=== PATIENT | female | born 1965 | race Caucasian/White ===

== ENCOUNTER → 2018-10-12 | Day surgery (SDC) | payer OTHER ==
[2018-10-12 13:45] VITALS: RESP 16; BMI 34.4
[2018-10-12 15:24] VITALS: BP 137/81; PULSE 91; TEMP 98.3
--- NOTE | 2018-10-12 15:37 | USB ---
EXAMINATION TYPE: US biopsy breast VAD LT, MG diagnostic mammo LT wo CAD DATE OF EXAM: 10/12/2018 CLINICAL HISTORY: R92.8 ABN MAMMO. TECHNIQUE: Ultrasound guided core biopsy of left breast. COMPARISON: Outside left breast ultrasound and mammogram dated 09/11/2018 and 08/25/2018 respectively. FINDINGS: The procedure of ultrasound guided core biopsy was explained to the patient. Benefits, alt ernatives, and risks were discussed. An informed consent was then obtained. Preprocedural timeout w as performed. The patient was placed in supine positioning for imaging and for the procedure. The overlying skin w as prepped and draped in usual sterile fashion. 10 cc of lidocaine buffered with bicarbonate was used as anesthetic into the skin and subcutaneous tissue up to the 7 x 7 x 8 mm shadowing taller than wid e mass at the 1:00 position in the left breast. 10 cc of lidocaine with epinephrine was also utilized to anesthetize the subcutaneous tissues surrounding the mass. Under ultrasound guidance, a 12-gauge vacuum assisted biopsy gun device was used to obtain [address] Following this, a ribbon to biopsy marker was left at the lateral periphery of the solid mass. The patient tolerated the procedure well without any immediate complication. The patient was kept in the radiology department for short stay after the procedure and then discharged home in stable condi tion. IMPRESSION: 1. Successful, uncomplicated ultrasound guided core biopsy of an 8 mm mass at the 1:00 position in th e left breast at middle depth, full pathology results to follow. This is noted to be suspicious and B I-RADS 4C. 2. Additional rounded asymmetry is seen 1.3 cm medial to the index mass on the postprocedural mammogr ams and should be evaluated pending radiologic/pathologic correlation. 3. Targeted left axillary ultrasound is performed on preprocedural imaging demonstrating 3 axillary l ymph nodes that although contain regular fatty franky to demonstrate cortical thickening of up to 5 mm, slightly suspicious.
== END | disposition home or self-care (01) ==
LOC: RADUSWWP 12:54
PROVIDERS: ATTEND Surgery
DX: N60.32 Fibrosclerosis of left breast (principal); N60.92 Unspecified benign mammary dysplasia of left breast; Z88.0 Allergy status to penicillin
CPT/HCPCS: 88305; 77065; 19083; A4648; J2001

== ENCOUNTER → 2018-10-12 | Outpatient (CLI) | payer OTHER ==
[2018-10-12 08:07] VITALS: BP 121/68; PULSE 82; RESP 18; TEMP 98.3; BMI 34.4
--- NOTE | 2018-10-12 08:33 | P.GSHP ---
History of Present Illness H&P Date: 10/12/18 Chief Complaint: abnromal left breast ultrsound and mammogram Catherine is a 53-year-old white female who is status post a routine screening bilateral mammogram in August 2018. On the left there was noted to be an interval development of a coarse microcalcification which although it appeared benign had some associated soft tissue density. She was subsequently recommended to undergo an ultrasound of the left breast. The ultrasound was performed on . He has no complaints of any pain in her breasts. The ultrasound revealed a hypoechoic slightly spiculated lesion measuring 9 x 7 mm. There was some associated shadowing consistent with the calcification seen on mammography. Ultrasound guided core biopsy was recommended. The patient does not feel any lesions of concern in her breast. She has no history of any abnormal nipple discharge. She has no history of any trauma to the breast. Family History: sister: (early 50's) breast cancer paternal aunt: 60's breast cancer Hormoanl History; menarche: 13 : 1, 1 [place], 3 adopted, no live births, not breast fed menopause: hysterectomy at 43 for pain, fibroid tumors removed at 35 and fallopian tube removed, both ovaries removed hormones: taken for 1 year, progesterone BCP: 6 months Past Surgical History: 1. gallbladder 2. hysterctomy 3. myomectomy 4. D&C 5. node biopsy (cat scratch disease) Past Medical History: 1. Lupus 2. Psoriasis 3. GERD 4. high cholesterol Social History: : Negative Alcohol: Negative Drugs: Negative - Constitutional Constitutional: Denies chills, Denies fever - EENT Comment: wears glasses Eyes: denies blurred vision, denies pain Ears: deny: decreased hearing, earache, tinnitus Ears, nose, mouth and throat: Reports headache, Denies sore throat - Breasts Breasts: bilateral: as per HPI - Cardiovascular Cardiovascular: Denies chest pain, Denies shortness of breath - Respiratory Respiratory: Denies cough, Denies 7 - Gastrointestinal Comment: GERD Gastrointestinal: Denies abdominal pain, Denies diarrhea, Denies nausea, Denies vomiting - Genitourinary (Female) Genitourinary: Denies dysuria, Denies hematuria - Menstruation Menstruation: Reports post hysterectomy - Genitourinary (Male) Genitourinary: Denies dysuria, Denies hematuria - Musculoskeletal Comment: Psoriasis, lupus Musculoskeletal: Reports myalgias - Integumentary Comment: Psoriasis Integumentary: Reports pruritus - Neurological Neurological: Reports numbness, Denies weakness - Psychiatric Psychiatric: Denies anxiety, Denies depression - Endocrine Endocrine: Reports fatigue, Denies weight change - Hematologic/Lymphatic Comment: none - Allergic/Immunologic Allergic/Immunologic: Reports seasonal allergies Past Medical History Past Medical History: GERD/Reflux, Hyperlipidemia, Skin Disorder Additional Past Medical History / Comment(s): Lupus dx 12/2017; psoriasis dx 2017 History of Any Multi-Drug Resistant Organisms: None Reported Past Surgical History: Cholecystectomy, Hysterectomy Additional Past Surgical History / Comment(s): Myomectomy, three lymph nodes removed from groin due to cat scratch disease 2005 Past Anesthesia/Blood Transfusion Reactions: No Reported Reaction Past Psychological History: No Psychological Hx Reported Smoking Status: Never smoker Past Alcohol Use History: Rare Past Drug Use History: None Reported - Past Family History Mother Family Medical History: Hypertension Sister(s) Family Medical History: Cancer, Hypertension Additional Family Medical History / Comment(s): breast cancer Medications and Allergies Home Medications Medication Instructions Recorded Confirmed Type Acetaminophen Tab [Tylenol Tab] 650 mg PO Q4H PRN 10/04/18 10/12/18 History Atorvastatin [Lipitor] 20 mg PO DAILY 10/04/18 10/12/18 History Lansoprazole [Prevacid] 30 mg PO DAILY 10/04/18 10/12/18 History Naproxen [Naprosyn] 500 mg PO Q12HR PRN 10/04/18 10/12/18 History Allergies Allergy/AdvReac Type Severity Reaction Status Date / Time Penicillins AdvReac Vomiting Verified 10/12/18 07:52 Surgical - Exam Vital Signs Temp Pulse Resp BP Pulse Ox 98.3 F 82 18 121/68 95 10/12/18 07:54 10/12/18 07:54 10/12/18 07:54 10/12/18 07:54 10/12/18 07:54 BMI 34.5 - General well developed, well nourished, no distress - Eyes normal ocular movement, no icteric - ENT no hearing loss, no congestion - Neck no masses, trachea midline - Respiratory normal respiratory effort, clear to auscultation - Cardiovascular Rhythm: regular Heart Sounds: normal: S1, S2 - Abdomen Abdomen: soft, non tender, no guarding, no rigid, no rebound - Integumentary psoriasis other - Neurologic no disoriented, no combative - Musculoskeletal normal gait, normal posture, other - Psychiatric oriented to time, oriented to person, oriented to place, speech is normal, memory intact Breast examination: Right breast: Multi-positional examination no dominant masses or nodules of concern Right axilla: No adenopathy of concern Left breast: Multi-positional examination mild increased nodularity in the upper inner quadrant area consistent with fibrocystic changes, no dominant masses or nodules of concern Left axilla: No adenopathy of concern Results Mammogram and ultrasound results reviewed Assessment and Plan Assessment: Impression: 1. Radiographic abnormality ultrasound left breast 2. Lupus 3. Psoriasis 4. High cholesterol 5. Numbness in her feet 6. GERD Plan: 1. Ultrasound-guided core biopsy of the left breast 2. Medical management of medical conditions Risks and benefits of the ultrasound-guided core biopsy discussed with the patient and she is scheduled for this to be done later this afternoon. The patient understands and wishes to proceed. She will follow up next week for results of the biopsy. Cc: Nicolasa Sue ([facility]), Dr. Garrett Simms Plan: Plan: 1. Ultrasound-guided core biopsy of the left breast 2. Medical management of medical conditions Risks and benefits of the ultrasound-guided core biopsy discussed with the patient and she is scheduled for this to be done later this afternoon. The patient understands and wishes to proceed. She will follow up next week for results of the biopsy. Cc: Nicolasa Sue ([facility]), Dr. Garrett Simms
== END ==
LOC: WWCWWP 07:42
PROVIDERS: ATTEND Surgery
DX: Z53.9 Procedure and treatment not carried out, unspecified reason (principal)

== ENCOUNTER → 2018-10-19 | Outpatient (CLI) | payer OTHER ==
[2018-10-19 13:30] VITALS: BP 152/85; PULSE 76; RESP 18; TEMP 97.5; BMI 34.4
--- NOTE | 2018-10-19 14:30 | P.PN ---
Subjective Progress Note Date: 10/19/18 Catherine is a 53-year-old white female who is status post left breast ultrasound core biopsy on 1318. The pathology revealed fibrocystic changes including stromal fibrosis/scar, mild usual type ductal hyperplasia, and columnar cell change. It was recommended the correlation with clinical and imaging study findings be done to determine biopsy adequacy. The lesion was noted preoperatively to be slightly spiculated and 9 x 7 mm in size. There was some associated shadowing consistent with calcifications seen on mammography. The patient does have a family history of a sister with breast cancer in her early 50s, and a paternal aunt with breast cancer in her 60s. Additionally the ultrasound performed at the time of the biopsy evaluated the lymph nodes on the left side which revealed 3 lymph nodes were slightly enlarged cortex making a slightly suspicious. The lesion itself was 4 to be at BIRADS 4C. And additional rounded asymmetry was seen 1.3 cm medial to the index mass on the postprocedural mammograms and was felt should be evaluated pending radiographic/ pathologic correlation. Physical examination: Lungs: Clear Heart: Regular rate and rhythm Examination of the left breast reveals mild ecchymosis with no evidence of any hematoma or infection at the site of the core biopsy Impression: 1. Benign ultrasound core biopsy of left breast mass, question whether this is concordant with findings on radiograph. The area was reviewed with from radiology and secondary to the fact that this was a 4C lesion and the findings are completely benign it was felt that it would be best to do a needle local excisional biopsy. Would recommend also attention so to the rounded asymmetry 1.3 cm medial to the index mass on the postprocedural mammograms. 2. Targeted left axillary ultrasound revealed 3 axillary nodes which have slight cortical thickening up to 5 mm slightly suspicious 3. Positive family history of breast cancer sister with breast cancer in her 50s Plan: 1. Needle localization excisional biopsy of lesion noted on ultrasound of the left breast, secondary to discordance of the pathology findings 2. Particular attention 2 additional rounded lesion 1.3 cm medial to the index mass on the postprocedural mammograms 3. We will follow closely axillary nodes depending on results of pathology on needle local excisional tissue Procedure was explained to the patient and her . Risks and benefits of the procedure were explained. This will be scheduled in the near future CC: Dr. Demi Erazo Objective - Vital Signs Vital signs: Vital Signs Temp 97.5 F L 10/19/18 13:28 Pulse 76 10/19/18 13:28 Resp 18 10/19/18 13:28 BP 152/85 10/19/18 13:28 Pulse Ox 96 10/19/18 13:28 Intake & Output 10/18/18 10/19/18 10/19/18 18:59 06:59 18:59 Weight 99.79 kg
== END | disposition home or self-care (01) ==
LOC: WWCWWP 12:48
PROVIDERS: ATTEND Surgery
DX: Z53.9 Procedure and treatment not carried out, unspecified reason (principal)

== ENCOUNTER 2018-11-14 07:13 | Day surgery (SDC) | payer OTHER ==
[2018-11-10 14:11] VITALS: BMI 34.4
[~2018-11-14 07:13] MED LIST: ALPRAZolam 0.5 MG TAB PO PRN; DEXAMETHASONE SOD PHOSPHATE 10 MG/ML 1 ML VIAL IV ONE; HEPARIN SODIUM,PORCINE 5,000 UNIT/ML 1 ML VIAL SQ ONE; LACTATED RINGERS 1,000 ML IV SCH; LIDOCAINE 1% 20 ML VIAL (10MG/ML) FOR IV START INTRADERMA PRN; MIDAZOLAM 2 MG/2 ML VIAL IV PRN; Pre Op ABX Message 1 EACH MISC MISCELLANE ONE; fentaNYL (PF) 50 MCG/ML 2 ML AMP IV PRN
[2018-11-14] MEDS ORDERED: LIDOCAINE 1% INJ 10MG/ML (20 ML MDV) SQ ONE ×3 (09:03→10:49)
[2018-11-14] MEDS ORDERED: SODIUM BICARB 4% 5 ML VIAL (0.48 MEQ/ML) MISCELLANE ONE (09:03)
[2018-11-14] MEDS ORDERED: ONDANSETRON 4 MG/2 ML VIAL IVP ONE (09:30)
[2018-11-14] MEDS ORDERED: HEPARIN SODIUM,PORCINE 5,000 UNIT/ML 1 ML VIAL SQ ONE (09:37)
[2018-11-14] MEDS ORDERED: SUCCINYLCHOLINE CHLORIDE 100 MG/5 ML SYR IV ONE (09:40)
[2018-11-14] MEDS ORDERED: LIDOCAINE 1% INJ 10MG/ML (20 ML MDV) ONE (09:40)
[2018-11-14] MEDS ORDERED: KETOROLAC 30 MG/ML 1 ML VIAL ONE (09:40)
[2018-11-14] MEDS ORDERED: fentaNYL (PF) 50 MCG/ML 2 ML AMP ONE (09:40)
[2018-11-14] MEDS ORDERED: MIDAZOLAM 2 MG/2 ML VIAL ONE (09:40)
[2018-11-14] MEDS ORDERED: PROPOFOL 10 MG/ML 20 ML VIAL IV ONE (09:40)
--- NOTE | 2018-11-14 10:48 | P.OP ---
Date of Procedure: 11/14/18 Preoperative Diagnosis: Core biopsy of lesion left breast felt to be discordant Postoperative Diagnosis: Same Procedure(s) Performed: Needle localization excisional biopsy of previously core biopsied lesion results felt to be discordant Anesthesia: LIANA Surgeon: Citlaly Betancourt Estimated Blood Loss (ml): 3 IV fluids (ml): 700 Pathology: other (Breast tissue) Condition: stable Disposition: PACU Indications for Procedure: Discordant radiographic lesion on core biopsy Operative Findings: Dense breast tissue Description of Procedure: Catherine is a 53-year-old white female who is status post a core biopsy of a lesion of concern in the left breast. The lesion was a RAD 4C and the biopsy material was benign. There was concern that this was discordant and therefore needle local excisional biopsy of the area of concern was recommended. Risks and benefits of the procedure were discussed with the patient and she wished the area to be excised. The patient was taken to the operating room and following needle localization of the area of concern in the left breast. A second area of concern was also addressed and free needle local radiographs did not reveal the second area to be persistent. Therefore after review with the radiologist only one area was needle localized. Following needle localization the patient was brought to the operating room. Following induction of general anesthesia the left breast was prepped and draped in a sterile fashion. Circumareolar incision was made and dissection was performed down to the shaft of the needle. This was grasped using an Allis clamp and elevated. Circumareolar differential dissection was performed using a plasma blade. Hemostasis was attained during the procedure using the coagulation portion of the plasma knife. Dissection was performed circumferentially around the needle including the area of concern. The specimen was then removed and painted for orientation. The specimen was sent to x-ray for radiographic and confirmation the area of concern was removed was obtained. After we assured that hemostasis was attained the cavity was marked using titanium clips. The deep tissues were closed using 3-0 Vicryl suture. The superficial tissue was closed with 4-0 Vicryl suture followed by 4-0 Monocryl. The patient tolerated the procedure in stable condition. All instrument and sponge counts were correct at the end of the case.
--- NOTE | 2018-11-14 10:50 | P.DS ---
Providers Attending physician: Citlaly Betancourt Primary care physician: Garrett Simms Plan - Discharge Summary Discharge Rx Participant: Yes New Discharge Prescriptions: No Action Acetaminophen Tab [Tylenol Tab] 650 mg PO Q4H PRN PRN Reason: Pain Naproxen [Naprosyn] 500 mg PO Q12HR PRN PRN Reason: Pain Lansoprazole [Prevacid] 30 mg PO DAILY Atorvastatin [Lipitor] 20 mg PO DAILY Ergocalciferol [Vitamin D2] 50,000 unit PO SA Discharge Medication List Acetaminophen Tab [Tylenol Tab] 650 mg PO Q4H PRN 10/04/18 [History] Atorvastatin [Lipitor] 20 mg PO DAILY 10/04/18 [History] Lansoprazole [Prevacid] 30 mg PO DAILY 10/04/18 [History] Naproxen [Naprosyn] 500 mg PO Q12HR PRN 10/04/18 [History] Ergocalciferol [Vitamin D2] 50,000 unit PO SA 11/10/18 [History] Follow up Appointment(s)/Referral(s): Citlaly Betancourt MD [STAFF PHYSICIAN] - 1 Week Activity/Diet/Wound Care/Special Instructions: 1. Do not drive today 2. Patient may shower after 48 hours 3. Wear bra at all times unless showering until seen by Dr. Rosario Discharge Disposition: HOME SELF-CARE
[2018-11-14 11:10] VITALS: TEMP 97
[2018-11-14 11:59] VITALS: RESP 18
[2018-11-14] MEDS ORDERED: HYDROcodone/APAP 5-325MG 1 EACH TAB PO ONE (12:05)
[2018-11-14 12:35] VITALS: BP 139/88; PULSE 87
--- NOTE | 2018-11-14 16:55 | MM ---
EXAMINATION TYPE: MG pre op needle loc LT DATE OF EXAM: 11/14/2018 COMPARISON: NONE CLINICAL HISTORY: Palpable mass, abnormal ultrasound TECHNIQUE: Needle localization with wire placement and surgical excision of area of concern in the left breast. FINDINGS: The procedure of needle localization with wire placement was explained to the patient. Benefits, alternatives, and risks were discussed. An informed consent was then obtained. Timeout was performed The shortest pathway for procedure was chosen. Shortest pathway was lateral approach. The overlying skin was prepped and draped in usual sterile fashion. Lidocaine buffered with bicarbonate was used as anesthetic into the skin and subcutaneous tissue up to the level of area of concern. A 5 cm needle was used. It was placed via a lateral approach under mammographic guidance. Subsequent 90 degrees mammogram show the needle to be in satisfactory position relative to the targeted area. At this point, wire was placed and the needle was withdrawn. The wire was fixed to patient's skin. Images were marked for surgeon. [place] node injection was then performed. The patient tolerated the procedure well without any immediate complication. The patient was kept in the radiology department for short stay after the procedure and then taken to surgery for surgical excision. Specimen: Surgical clip and density as well as a wire within the specimen. IMPRESSION: 1. Successful wire localization and excision. Recommendations: 1. Recommendations are pending pathology results. Pathology Results: Benign LEFT BREAST, NEEDLE LOCALIZATION EXCISION: Nodular scar with chronic inflammation and fat necrosis. Background fibrocystic changes including cysts, mild to moderate usual type ductal hyperplasia, columnar cell change, apocrine metaplasia and adenosis. Previous biopsy site. Recommendation Follow up mammogram of the left breast in 6 months. KAREL
== END 2018-11-14 13:06 | disposition home or self-care (01) ==
LOC: OR 07:13
PROVIDERS: ATTEND Surgery
DX: N64.1 Fat necrosis of breast (principal); N60.12 Diffuse cystic mastopathy of left breast; N60.92 Unspecified benign mammary dysplasia of left breast; N60.82 Other benign mammary dysplasias of left breast; N60.22 Fibroadenosis of left breast; Z80.3 Family history of malignant neoplasm of breast; E78.5 Hyperlipidemia, unspecified; J45.909 Unspecified asthma, uncomplicated; M32.9 Systemic lupus erythematosus, unspecified; K21.9 Gastro-esophageal reflux disease without esophagitis; L40.9 Psoriasis, unspecified; Z79.899 Other long term (current) drug therapy; Z88.0 Allergy status to penicillin; Z90.710 Acquired absence of both cervix and uterus; Z90.49 Acquired absence of other specified parts of digestive tract
CPT/HCPCS: 88307; 76098; 19281; 19125; J2250; J1100; J2405; J2001; J3010; J1885; J0330; J2704

== ENCOUNTER → 2018-11-23 | Outpatient (CLI) | payer OTHER ==
[2018-11-23 09:24] VITALS: BP 150/91; PULSE 95; RESP 18; TEMP 97.8; BMI 34.4
--- NOTE | 2018-11-23 09:59 | P.PN ---
Subjective Progress Note Date: 11/23/18 Principal diagnosis: Left breast needle local excisional biopsy Catherine is a 53-year-old white female status post needle Localization and excisional biopsy of area of concern in the left breast. This was performed on 2518. Postprocedure the patient stated that she initially had some aching of her left arm which has sounds subsided. She also had some ecchymosis in the left breast. At this time she is doing well without complaints. Her pathology revealed nodular scar with chronic inflammation and fat necrosis. She had background fibrocystic changes including cysts, mild to moderate ductal hyperplasia, columnar cell change, apocrine metaplasia, and adenosis. Objective - Vital Signs Vital signs: Vital Signs Temp 97.8 F 11/23/18 09:16 Pulse 95 11/23/18 09:16 Resp 18 11/23/18 09:16 BP 150/91 11/23/18 09:16 Pulse Ox 95 11/23/18 09:16 Intake & Output 11/22/18 11/23/18 11/23/18 18:59 06:59 18:59 Weight 99.79 kg - Constitutional General appearance: Present: average body habitus - EENT Eyes: Present: EOMI ENT: Present: hearing grossly normal - Respiratory Respiratory: bilateral: CTA - Cardiovascular Rhythm: regular Heart sounds: normal: S1, S2 - Integumentary Integumentary Comment(s): Incision clean and dry Resolving ecchymosis No evident hematoma No evident infection - Psychiatric Psychiatric: Present: A&O x's 3, appropriate affect, intact judgment & insight Assessment and Plan Assessment: Impression: 1. Patient status post needle localization and excisional biopsy left breast 2 519, spaced pathology benign 2. Patient doing well postop 3. Resolving ecchymosis left breast Plan: 1. Follow up 2 weeks to follow ecchymosis 2. Follow up sooner if any questions or concerns 3. Repeat left breast mammogram in 6 months CC: Dr. Simms
== END | disposition home or self-care (01) ==
LOC: WWCWWP 09:03
PROVIDERS: ATTEND Surgery
DX: Z53.9 Procedure and treatment not carried out, unspecified reason (principal)

== ENCOUNTER → 2018-12-07 | Outpatient (CLI) | payer OTHER ==
[2018-12-07 14:45] VITALS: BP 150/90; PULSE 94; RESP 18; TEMP 98.2; BMI 34.4
--- NOTE | 2018-12-07 14:50 | P.PN ---
Progress Note - Text Progress Note Date: 12/07/18 This a 53-year-old white female who is status post left breast ultrasound core biopsy and 1319. Pathology revealed fibrocystic changes including stromal fibrosis/scar, mild usual type ductal hyperplasia and columnar cell change. It was recommended to correlate with clinical and imaging studies to determine biopsy adequacy. There was some concern that this was discordant and the patient therefore underwent a needle localization and excisional biopsy on . Pathology was consistent with nodular scar and chronic inflammation and fat necrosis. The patient post procedure noted persistent pain at the biopsy site. She underwent an ultrasound at [place] which revealed postoperative fluid collection at the biopsy site. Differential considerations were hematoma , seroma or abscess. She was started on antibiotics in [facility]. At this time the patient does not have pain unless the area is touched or manipulated. She states that the discomfort has improved. Physical exam: Lungs: Clear Heart: Regular rate and rhythm Incision site clean and dry there is a small suture which is starting to extrude from the more lateral aspect of the incision Impression: 1. Status post left breast needle local excisional biopsy pathology benign 2. Status post biopsy pain resolving Plan: 1. Continue present therapy 2. Will review ultrasound performed at [place] 3. Repeat left breast mammogram and ultrasound in 6 months CC: Kell Sue ([place]),
== END | disposition home or self-care (01) ==
LOC: WWCWWP 14:16
PROVIDERS: ATTEND Surgery
DX: Z53.9 Procedure and treatment not carried out, unspecified reason (principal)